=== PATIENT | male | born 1955 | race American Indian/Alaskan Native ===

== ENCOUNTER 2017-10-17 11:30 | Emergency (ER) | payer OTHER, MEDICAID ==
[2017-10-17 11:37] VITALS: BMI 31.7
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
[2017-10-17 12:03] VITALS: TEMP 94.4; O2SAT 99
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
[2017-10-17 12:53] VITALS: BP 178/94; PULSE 76; RESP 16
== END 2017-10-17 13:39 | disposition home or self-care (01) ==
LOC: ED 11:30
DX: R51 Headache (principal); V49.49XA Driver injured in collision with other motor vehicles in traffic accident, initial encounter; Y92.410 Unspecified street and highway as the place of occurrence of the external cause

== ENCOUNTER 2018-07-20 20:54 | Inpatient (IN) | payer MEDICAID, OTHER ==
[2018-07-20 21:06] VITALS: BMI 35.5
--- NOTE | 2018-07-20 21:31 | ED PDOC ---
Arrival/HPI - General Chief Complaint: Back Pain Time Seen by Provider: 07/20/18 21:23 Historian: Patient, Spouse - History of Present Illness Narrative History of Present Illness (Text): 07/20/18 21:23 62 year old male, whose past medical history includes hypertension and diabetes, presents to the emergency department complaining of worsening left lower back pain with movement for the past 2 days. Patient denies any trauma. Patient reports on root to the ER, his blood pressure was elevated and became diaphoretic with difficulty breathing which has currently resolved. Patient denies any fever, chills, chest pain, nausea, vomiting, diarrhea, urinary symptoms, neck pain, headache, dizziness, or any other complaints. PMD: Dr. Maurisio Coronel Symptom Onset: Gradual Symptom Course: Unchanged Activities at Onset: Light Context: Home Past Medical History - Provider Review Nursing Documentation Reviewed: Yes - Cardiac Hx Cardiac Disorders: Yes Hx Hypertension: Yes - Endocrine/Metabolic Hx Endocrine Disorders: Yes Hx Diabetes Mellitus Type 2: Yes - Psychiatric Hx Substance Use: No Family/Social History - Physician Review Nursing Documentation Reviewed: Yes Family/Social History: No Known Family HX Smoking Status: Never Smoked Hx Alcohol Use: No Hx Substance Use: No Allergies/Home Meds Allergies/Adverse Reactions: Allergies No Known Allergies Allergy (Verified 07/20/18 21:06) Home Medications: Home Meds Medication Instructions Recorded Confirmed Benzonatate 200 mg PO DAILY 10/17/17 07/20/18 metFORMIN [glucOPHAGE] 500 mg PO DAILY 10/17/17 07/20/18 Review of Systems - Physician Review All systems were reviewed & negative as marked: Yes - Review of Systems Constitutional: absent: Fevers, Other (Chills) Respiratory: SOB Cardiovascular: absent: Chest Pain Gastrointestinal: absent: Abdominal Pain, Diarrhea, Nausea, Vomiting Genitourinary Male: absent: Dysuria, Frequency, Hematuria Musculoskeletal: Back Pain. absent: Neck Pain Neurological: absent: Headache, Dizziness Endocrine: Diaphoresis Physical Exam - Physical Exam Narrative Physical Exam (Text): Gen: VS reviewed, alert, well developed, well nourished, nontoxic, mild distress. ENT: normal pharynx. Eye: EOMI, PERRL. Neck: no JVD, supple, no adenopathy. CV: regular rate, regular rhythm, no rubs, no murmur, no gallops, S1, S2, pulses equal and strong. Pulm: no distress, clear to auscultation, no wheeze, no rhonchi, breath sounds equal, no rales. Abd: soft, nontender, no guarding, no rebound, no rigidity, normal bowel sounds. Ext: no edema. Skin: good color, no rash, no cyanosis. Psych: responds appropriately to questions, normal affect. Neuro: oriented x 3, CN2-12 intact grossly, motor intact, sensation intact. Vital Signs Reviewed: Yes Vital Signs Temp Pulse Resp BP Pulse Ox 07/20/18 21:09 98.4 F 83 16 196/102 H 99 Temperature: Afebrile Blood Pressure: Hypertensive Pulse: Regular Respiratory Rate: Normal Medical Decision Making ED Course and Treatment: 07/20/18 21:23 Impression: 62 year old male presents complaining of worsening left lower back pain with movement for the past 2 days. Patient also reports elevated blood pressure and diaphoresis with shortness of breath on root to the Emergency room which have resolved. Plan: -- EKG -- Chest X-ray -- Labs -- Apresoline, Catapress -- Reassess and disposition Progress Notes: 07/20/18 21:54 2123: case discussed with dr. almeida, interventional cardiology injury prevention coordinator, he has reviewed the ekg and states it is not consistent with acute stemi 07/21/18 01:45 case discussed with director of medical services and Dr. Frank Alcantar who is aware and agrees with the plan. Accepts patient into hospitalist service. 07/21/18 01:47 patient was seen for transient diaphoresis and dyspnea occurring just prior to Ed arrival. no symptoms during Ed course. CXr and labs appears consistent with CHF, likely stemming from uncontrolled HTN. Patient to be admitted for further workup and cardiology consultation. - Lab Interpretations I have reviewed the lab results: Yes - RAD Interpretation Narrative RAD Interpretations (Text): 07/21/18 01:43 cxr my read: cardiomegaly, pulm edema, no ptx Glazier Helper: ED Physician - EKG Interpretation EKG Interpretation (Text): 07/20/18 22:56 2111: nsr at 85 bpm, nml qrs, LVH with strain, prolonged QT Interpreted by ED Physician: Yes Type: 12 lead EKG - Scribe Statement The provider has reviewed the documentation as recorded by the Scribe Kecia Valenzuelaour Provider Adaliibe Attestation: All medical record entries made by the Neno were at my direction and personally dictated by me. I have reviewed the chart and agree that the record accurately reflects my personal performance of the history, physical exam, medical decision making, and the department course for this patient. I have also personally directed, reviewed, and agree with the discharge instructions and disposition. Disposition/Present on Arrival - Present on Arrival Any Indicators Present on Arrival: No History of DVT/PE: No History of Uncontrolled Diabetes: No Urinary Catheter: No History of Decub. Ulcer: No History Surgical Site Infection Following: None - Disposition Have Diagnosis and Disposition been Completed?: Yes Diagnosis: CHF (congestive heart failure) Disposition: HOSPITALIZED Disposition Time: 01:46 Patient Plan: Admission Condition: STABLE Discharge Instructions (ExitCare): Heart Failure (ED) Forms: [employer] (Malay)
[2018-07-20 22:25] LABS: BASO # 0.01 K/mm3 (0.0-2.0); BASO % 0.1 % (0.0-3.0); EOS # 0.1 (0.0-0.7); EOS % 0.8 % (1.5-5.0); GRAN # 6.51 (1.4-6.5); GRAN % 66.3 % (50.0-68.0); HEMOGLOBIN 15.5 g/dL (14.0-18.0); LYMPH # 2.6 (1.2-3.4); LYMPH % 26.4 % (22.0-35.0); MEAN CELL VOLUME 84.5 fl (80.0-105.0); MEAN CORPUSCULAR HEMOGLOBIN 29.7 pg (25.0-35.0); MEAN CORPUSCULAR HGB CONC 35.1 g/dl (31.0-37.0); MEAN PLATELET VOLUME 10.1 fl (7.0-11.0); MONO # 0.6 (0.1-0.6); MONO % 6.4 % (1.0-6.0); RBC 5.22 10^6/uL (3.5-6.1); RED CELL DISTRIBUTION WIDTH 13.4 % (11.5-14.5); WHITE BLOOD COUNT 9.8 10^3/ul (4.5-11.0)
[2018-07-20 22:31] LABS: ALB/GLOB RATIO 1.1 (1.1-1.8); BLOOD UREA NITROGEN 14 mg/dL (7-21); CALCIUM 8.8 mg/dL (8.4-10.5); GFR NON-AFRICAN AMERICAN > 60
[2018-07-20 22:32] LABS: INR 1.03; PARTIAL THROMBOPLASTIN TIME 28.4 Seconds (25.1-36.5); PROTHROMBIN TIME 11.7 SECONDS (9.4-12.5)
[2018-07-20 22:33] LABS: D DIMER < 200 ng/mlDDU (0-243)
[2018-07-20 22:36] LABS: ALT/SGPT 55 U/L (7-56); AST/SGOT 40 U/L (17-59)
[2018-07-20 22:41] LABS: TROPONIN I 0.04 ng/mL
[2018-07-21] MEDS ORDERED: Insulin Lispro (humaLOG) MEDIUM Coverage SC SCH (03:30)
[2018-07-21 04:46] LABS: HEMOGLOBIN 16.3 g/dL (14.0-18.0); MEAN CELL VOLUME 83.7 fl (80.0-105.0); MEAN CORPUSCULAR HEMOGLOBIN 29.8 pg (25.0-35.0); MEAN CORPUSCULAR HGB CONC 35.6 g/dl (31.0-37.0); MEAN PLATELET VOLUME 10.2 fl (7.0-11.0); RBC 5.47 10^6/uL (3.5-6.1); RED CELL DISTRIBUTION WIDTH 13.4 % (11.5-14.5); WHITE BLOOD COUNT 11.2 10^3/ul (4.5-11.0)
[2018-07-21 04:49] LABS: URINE BILIRUBIN NEGATIVE (NEGATIVE); URINE BLOOD NEGATIVE (NEGATIVE); URINE GLUCOSE (UA) 100 mg/dL (NEGATIVE); URINE LEUKOCYTE ESTERASE NEGATIVE Leu/uL (NEGATIVE); URINE PROTEIN NEGATIVE mg/dL (<30 mg/dL); URINE UROBILINOGEN 0.2 E.U./dL (<1 E.U./dL)
[2018-07-21 04:55] LABS: URINE APPEARANCE CLEAR (CLEAR); URINE COLOR STRAW (YELLOW)
[2018-07-21 05:00] LABS: LDL CHOLESTEROL 76 mg/dL (0-129); TROPONIN I 0.05 ng/mL
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
[2018-07-21 05:24] LABS: ALB/GLOB RATIO 1.1 (1.1-1.8); ALBUMIN 4.3 g/dL (3.0-4.8); ALT/SGPT 55 U/L (7-56); AST/SGOT 30 U/L (17-59); BLOOD UREA NITROGEN 13 mg/dL (7-21); CALCIUM 9.3 mg/dL (8.4-10.5); GFR NON-AFRICAN AMERICAN > 60; HDL CHOLESTEROL 45 mg/dL (29-60)
[2018-07-21 05:54] VITALS: O2SAT 99
[2018-07-21] MEDS: Insulin Lispro (humaLOG) MEDIUM Coverage SC SCH ×5 (08:09→22:11)
--- NOTE | 2018-07-21 09:07 | RAD ---
Date of service: 07/21/2018 HISTORY: CHF COMPARISON: 07/20/2018 TECHNIQUE: Chest PA and lateral FINDINGS: LUNGS: There is a patchy infiltrate in the right lower lobe. This is unchanged PLEURA: No significant pleural effusion identified. No pneumothorax apparent. CARDIOVASCULAR: Normal. OSSEOUS STRUCTURES: No significant abnormalities. VISUALIZED UPPER ABDOMEN: Normal. OTHER FINDINGS: None. IMPRESSION: Patchy infiltrate in the right lower lobe unchanged
--- NOTE | 2018-07-21 09:16 | RAD ---
Date of service: 07/20/2018 HISTORY: dyspnea COMPARISON: No prior. FINDINGS: LUNGS: No active pulmonary disease. PLEURA: No significant pleural effusion identified, no pneumothorax apparent. CARDIOVASCULAR: Mild cardiomegaly and mild vascular congestion OSSEOUS STRUCTURES: No significant abnormalities. VISUALIZED UPPER ABDOMEN: Normal. OTHER FINDINGS: None. IMPRESSION: Mild cardiomegaly and mild vascular congestion
--- NOTE | 2018-07-21 09:43 | CARD ---
APPROVED REPORT Date of service: 07/20/2018 EKG Measurement Heart [id number] <Conclusion> Normal sinus rhythm Biatrial enlargement Left ventricular hypertrophy with repolarization abnormality Prolonged QT
--- NOTE | 2018-07-21 10:35 | CT ---
Date of service: 07/21/2018 PROCEDURE: CT Lumbar Spine without contrast HISTORY: eval for stenosis or djd COMPARISON: None available. TECHNIQUE: Axial computed tomography images were obtained of the lumbar spine without the use of intravenous contrast. Coronal and sagittal reformatted images were created and reviewed. Radiation dose: Total exam DLP = 856 mGy-cm. This CT exam was performed using one or more of the following dose reduction techniques: Automated exposure control, adjustment of the mA and/or kV according to patient size, and/or use of iterative reconstruction technique. FINDINGS: VERTEBRAE: Unremarkable. No fracture. Normal alignment. DISCS/SPINAL CANAL/NEURAL FORAMINA: L1-2: Unremarkable. L2-3: Unremarkable. L3-4: Disc bulge and facet arthropathy with mild central stenosis and mild bilateral foraminal stenosis L4-5: There is fusion of the L4-5 vertebral bodies with absence of a disc space. This is probably a congenital fusion. L5-S1: There is a moderate to large symmetrical disc bulge and facet arthropathy with severe foraminal stenosis. PARASPINAL SOFT TISSUES: Unremarkable. OTHER FINDINGS: None. 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 Disc bulge and facet arthropathy at L5-S1 with severe bilateral foraminal stenosis. Mild disc bulge and mild stenosis at L3-4
--- NOTE | 2018-07-21 10:59 | CARD ---
APPROVED REPORT Date of service: 07/21/2018 EKG Measurement Heart [id number] <Conclusion> Normal sinus rhythm Left ventricular hypertrophy with repolarization abnormality Prolonged QT Abnormal ECG
[2018-07-21 11:12] LABS: TROPONIN I 0.04 ng/mL
--- NOTE | 2018-07-21 14:50 | CP.PCM.PN ---
<Peg Blakeah - Last Filed: 07/21/18 16:19> Subjective - Date & Time of Evaluation Date of Evaluation: 07/21/18 Time of Evaluation: 07:15 - Subjective Subjective: Internal Medicine Progress note for Dr. Gong Patient seen and examined this am. patient is resting comfortably in chair and is able to ambulate easily without pain. Patient states that the back pain he had has resolved and only occasionally occurs while walking or standing. Discussed with patient the benefits of PT and possible dietary evaluation for better ambulatory strategies and control of his HTN respectively. Patient otherwise deneis WOODY, CP, SOB, abdominal pain, back pain or extremity pain. Objective - Vital Signs/Intake and Output Vital Signs (last 24 hours): Temp Pulse Resp BP Pulse Ox 98.0 F 76 21 147/89 99 07/21/18 12:00 07/21/18 12:32 07/21/18 12:00 07/21/18 12:32 07/21/18 05:52 Intake and Output: 07/21/18 07/21/18 06:59 18:59 Intake Total 500 Output Total 500 Balance 0 - Medications Medications: Current Medications Amlodipine Besylate (Norvasc) 5 mg PO DAILY [facility] Last Admin: 07/21/18 12:32 Dose: 5 mg Cyclobenzaprine HCl (Flexeril) 10 mg PO BID [facility] Last Admin: 07/21/18 10:06 Dose: 10 mg Famotidine (Pepcid) 20 mg PO DAILY [facility] Last Admin: 07/21/18 10:06 Dose: 20 mg Furosemide (Lasix) 20 mg IVP DAILY [facility] Last Admin: 07/21/18 10:06 Dose: 20 mg Heparin Sodium (Porcine) (Heparin) 5,000 units SC Q12 [facility]; Protocol Last Admin: 07/21/18 10:06 Dose: 5,000 units Hydralazine HCl (Apresoline) 10 mg IVP Q6 PRN PRN Reason: Systolic Blood Pressure > 150 Insulin Human Lispro (Humalog Med) 0 units SC ACHS [facility]; Protocol Last Admin: 07/21/18 11:58 Dose: Not Given Lisinopril (Zestril) 20 mg PO DAILY [facility] Last Admin: 07/21/18 12:31 Dose: 20 mg - Labs Labs: 07/21/18 04:18 07/21/18 04:18 PT 11.7 SECONDS (9.4-12.5) 07/20/18 22:08 INR 1.03 07/20/18 22:08 APTT 28.4 Seconds (25.1-36.5) 07/20/18 22:08 - Constitutional Appears: Well, Non-toxic, No Acute Distress - Head Exam Head Exam: ATRAUMATIC, NORMOCEPHALIC - Eye Exam Eye Exam: EOMI - ENT Exam ENT Exam: Mucous Membranes Moist - Neck Exam Neck Exam: Full ROM - Respiratory Exam Respiratory Exam: NORMAL BREATHING PATTERN - Cardiovascular Exam Cardiovascular Exam: REGULAR RHYTHM - GI/Abdominal Exam GI & Abdominal Exam: Soft. absent: Distended, Guarding, Tenderness - Extremities Exam Extremities Exam: absent: Calf Tenderness, Pedal Edema - Back Exam Back Exam: absent: paraspinal tenderness, vertebral tenderness - Neurological Exam Neurological Exam: Alert, Awake, CN II-XII Intact, Normal Gait, Oriented x3. absent: Motor Sensory Deficit - Psychiatric Exam Psychiatric exam: Normal Affect, Normal Mood - Skin Skin Exam: Dry, Intact, Normal Color, Warm Assessment and Plan - Assessment and Plan (Free Text) Assessment: 63 y/o M with PMHx DM, HTN admitted for hypertensive emergency and CHF exacerbation. In the ED, pt was treated with clonidine, lasix, and 2 doses of hydralazine. Overnight BP fairly well controlled, will begin lisoprila dn metoprolol toay for scheduled BP control. Discussed with patient need for low sodium diet and PT Eval to ensure he is able to ambulate safely. Plan: HTN * trops negative * EKG shows LVH and evidence of longstanding HTN * begin lisinopril and amlodipine * continue to monitor BP CHF * lasix 20mg IVP daily * F/u Echocardiogram * Consult cardiology: appreciate recs DM2 * Start insulin SS * f/u HgB A1c * Dietary eval, recs appreciated Low Back Pain * c/w cyclobenzaprine * f/u CT lumbar spine * PT eval and treat DVT/GI ppx: Heparin/Pepcid <Rangasamy,Ajantha - Last Filed: 07/22/18 16:49> Objective - Vital Signs/Intake and Output Vital Signs (last 24 hours): Temp Pulse Resp BP Pulse Ox 99.0 F 79 20 159/92 H 99 07/22/18 06:00 07/22/18 06:00 07/21/18 18:00 07/22/18 06:00 07/21/18 05:52 Intake and Output: 07/22/18 07/22/18 06:59 18:59 Intake Total 300 Balance 300 - Medications Medications: Current Medications Acetaminophen (Tylenol 325mg Tab) 650 mg PO Q6H PRN PRN Reason: Fever >100.4 F Last Admin: 07/21/18 18:46 Dose: 650 mg Amlodipine Besylate (Norvasc) 10 mg PO DAILY [facility] Cyclobenzaprine HCl (Flexeril) 10 mg PO BID [facility] Last Admin: 07/21/18 17:24 Dose: 10 mg Famotidine (Pepcid) 20 mg PO DAILY [facility] Last Admin: 07/21/18 10:06 Dose: 20 mg Furosemide (Lasix) 40 mg PO DAILY [facility] Heparin Sodium (Porcine) (Heparin) 5,000 units SC Q12 [facility]; Protocol Last Admin: 07/21/18 22:10 Dose: 5,000 units Hydralazine HCl (Apresoline) 10 mg IVP Q6 PRN PRN Reason: Systolic Blood Pressure > 150 Ceftriaxone Sodium (Rocephin 1 Gram Ivpb) 1 gm in 100 mls @ 100 mls/hr IVPB DAILY [facility]; Protocol Insulin Human Lispro (Humalog Med) 0 units SC ACHS [facility]; Protocol Last Admin: 07/21/18 22:11 Dose: Not Given Lisinopril (Zestril) 20 mg PO DAILY [facility] Last Admin: 07/21/18 12:31 Dose: 20 mg - Labs Labs: 07/22/18 05:30 07/22/18 05:30 PT 11.7 SECONDS (9.4-12.5) 07/20/18 22:08 INR 1.03 07/20/18 22:08 APTT 28.4 Seconds (25.1-36.5) 07/20/18 22:08 Attending/Attestation - Attestation I have personally seen and examined this patient.: Yes I have fully participated in the care of the patient.: Yes I have reviewed all pertinent clinical information, including history, physical exam and plan: Yes Notes (Text): 07/22/18 07:59 Attending note; Patient seen and examined with resident. Patient is alert and awake. Back pain resolved. Ambulating in the hallway. Blood pressure is improving. Denies any headache, chest pain, shortness of breath. Denies any nausea, vomiting. Tolerating diet well. Patient is a 63-year-old male with a past medical history of hypertension, noncompliance with medication is admitted with back pain. Found to have uncontrolled hypertension. Started back on medication. Blood pressures improved. Continue Norvasc, Lasix and lisinopril. Dietary education given. Cardiology evaluation requested. Echocardiogram ordered. Back pain resolved; lumbosacral CT ordered. PT evaluation requested. needs close follow up with PMD Dr. Coronel.
[2018-07-21] MEDS ORDERED: cefTRIAXone 1 gm 1 GM/100 ML BAG IVPB SCH (18:27)
[2018-07-21] MEDS ORDERED: cefTRIAXone 1 gm 1 GM/100 ML BAG IVPB ONE (18:51)
--- NOTE | 2018-07-21 20:54 | CARD ---
APPROVED REPORT Date of service: 07/21/2018 EXAM: Two-dimensional and M-mode echocardiogram with Doppler and color Doppler. INDICATION EVALUATE LVFX 2D DIMENSIONS Left Atrium (2D)4.5 (1.6-4.0cm)IVSd1.5 (0.7-1.1cm) LVDd4.6 (3.9-5.9cm)PWd1.6 (0.7-1.1cm) LVDs2.8 (2.5-4.0cm)FS (%) 38.9 % LVEF (%)69.4 (>50%) M-Mode DIMENSIONS Aortic Root2.50 (2.2-3.7cm)Aortic Cusp Exc.1.60 (1.5-2.0cm) Aortic Valve AoV Peak Eslrkqjc724.0cm/sAoV VTI32.6cmAO Peak GR.18mmHg LVOT Peak Xjzwxkjn112.0cm/sLVOT VTI19.90cmAO Mean GR.10mmHg Mitral Valve MV E Ojfrnvch329.0cm/sMV A Ssxzgrhh43.6cm/sE/A ratio1.6 TDI Lateral E' Peak V3.61cm/sMedial E' Peak V4.87cm/sE/Lateral E'29.6 E/Medial E'22.0 Pulmonary Valve PV Peak Ebyyqksp976.0cm/sPV Peak Grad.5mmHg Tricuspid Valve TR Peak Iynlifjy853lx/sRAP EVAUIZMF49mlXpCR Peak Gr.17mmHg [id number] LEFT VENTRICLE The left ventricle is normal size. There is moderate concentric left ventricular hypertrophy. Speckled pattern The left ventricular function is normal. The left ventricular ejection fraction is within the normal range. There is normal LV segmental wall motion. Tissue Doppler imaging reveals mild left ventricular diastolic dysfunction. RIGHT VENTRICLE The right ventricle is normal size. There is normal right ventricular wall thickness. The right ventricular systolic function is normal. ATRIA The left atrium is mildly dilated. The right atrium size is normal. AORTIC VALVE The aortic valve is mildly thickened. No aortic regurgitation is present. There is no aortic valvular stenosis. MITRAL VALVE The mitral valve is normal in structure. Mitral regurgitation is trace. TRICUSPID VALVE The tricuspid valve is normal in structure. There is trace tricuspid regurgitation. PULMONIC VALVE The pulmonary valve is normal in structure. There is no pulmonic valvular regurgitation. GREAT VESSELS The aortic root is normal in size. The IVC is normal in size and collapses >50% with inspiration. PERICARDIAL EFFUSION There is a trace circumferential pericardial effusion. <Conclusion> There is moderate concentric left ventricular hypertrophy. Speckled pattern The left ventricular function is normal. The left ventricular ejection fraction is within the normal range. There is normal LV segmental wall motion. Tissue Doppler imaging reveals mild left ventricular diastolic dysfunction.
--- NOTE | 2018-07-22 05:14 | CON ---
DATE: 07/21/2018 REASON FOR CONSULTATION: Hypertension, diabetes mellitus, and low back pain. HISTORY OF PRESENT ILLNESS: The patient is a 63-year-old male originally from ____ has history of hypertension, diabetes mellitus, presented because of worsening of low back pain for the past 2 days prior to admission. Patient denies any fall or accident. The patient was noted to have uncontrolled hypertension and shortness of breath as well as diaphoresis, was reported in the emergency room. Patient denies any prior known cardiac history other than history of hypertension. MEDICATIONS: Patient's home medications are metformin, amlodipine, benazepril HCl. Current hospital medications are hydralazine 10 mg intravenously every 6 hours p.r.n., heparin 5000 units subcutaneously every 12 hours, Lasix 20 mg intravenously daily, Norvasc 5 mg once a day, Zestril 20 mg once a day, Pepcid 20 mg orally once a day. PHYSICAL EXAMINATION: GENERAL: Patient is a middle-aged male, who does not appear to be in acute distress. VITAL SIGNS: Blood pressure, the highest blood pressure today was 161/104, heart rate 78, temperature 98, respiration 21. HEENT: Normocephalic. CHEST: Clear. HEART: S1, S2 regular. ABDOMEN: Soft. EXTREMITIES: No edema. LABORATORY DATA: Hemoglobin and hematocrit 16.3 and 45.8, white count 11.2, platelet count 140,000. Today's SMA-7 is within normal limits except for glucose 139. Troponin were 0.04, 0.05, and 0.04. EKG reveals sinus rhythm, LVH with repolarization changes, biatrial enlargement. Lumbar spine CT scan, congenital fusion of L4, L5 vertebral bodies, disk bulge and facet arthropathy at L5-S1 with severe bilateral foraminal stenosis. ASSESSMENT: 1. Uncontrolled hypertension. 2. Low back pain. 3. Diabetes mellitus. 4. Abnormal EKG with evidence of biatrial enlargement, left ventricular hypertrophy with repolarization changes, and on admission there was prolonged QT interval. RECOMMENDATIONS: Continue hydralazine 10 mg every 6 hours p.r.n., subcutaneous heparin 5000 units twice a day, Lasix 20 mg intravenously daily, Norvasc 5 mg once a day, Zestril 20 mg once a day. I will review the echocardiographic study performed today. Avtar Guillermo MD [facility] # [id number]
[2018-07-22 06:30] LABS: HEMOGLOBIN 15.6 g/dL (14.0-18.0); MEAN CELL VOLUME 84.7 fl (80.0-105.0); MEAN CORPUSCULAR HEMOGLOBIN 29.2 pg (25.0-35.0); MEAN CORPUSCULAR HGB CONC 34.4 g/dl (31.0-37.0); RBC 5.35 10^6/uL (3.5-6.1); RED CELL DISTRIBUTION WIDTH 13.8 % (11.5-14.5)
[2018-07-22 07:22] LABS: ALB/GLOB RATIO 1.1 (1.1-1.8); ALBUMIN 3.8 g/dL (3.0-4.8); ALT/SGPT 39 U/L (7-56); AST/SGOT 22 U/L (17-59); BLOOD UREA NITROGEN 14 mg/dL (7-21); CALCIUM 8.8 mg/dL (8.4-10.5); GFR NON-AFRICAN AMERICAN 56
[2018-07-22] MEDS: Insulin Lispro (humaLOG) MEDIUM Coverage SC SCH ×3 (08:09→17:28)
[2018-07-22] MEDS ORDERED: cefTRIAXone 1 gm 1 GM/100 ML BAG IVPB SCH (10:00)
--- NOTE | 2018-07-22 13:36 | CP.PCM.DIS ---
<HaydenFarrah - Last Filed: 07/23/18 17:05> Provider - Provider Date of Admission: 07/21/18 01:48 Attending physician: Cristine Gong MD Time Spent in preparation of Discharge (in minutes): 45 Diagnosis - Discharge Diagnosis (1) HTN (hypertension) Status: Resolved (2) CHF (congestive heart failure) Status: Resolved Hospital Course - Lab Results Lab Results: Micro Results 07/21/18 03:15 Urine Urine Culture - Final No Growth (<1,000 CFU/ML) Most Recent Lab Values WBC 12.0 10^3/ul (4.5-11.0) H 07/22/18 05:30 RBC 5.35 10^6/uL (3.5-6.1) 07/22/18 05:30 Hgb 15.6 g/dL (14.0-18.0) 07/22/18 05:30 Hct 45.3 % (42.0-52.0) 07/22/18 05:30 MCV 84.7 fl (80.0-105.0) 07/22/18 05:30 MCH 29.2 pg (25.0-35.0) 07/22/18 05:30 MCHC 34.4 g/dl (31.0-37.0) 07/22/18 05:30 RDW 13.8 % (11.5-14.5) 07/22/18 05:30 Plt Count 200 10^3/uL (120.0-450.0) 07/22/18 05:30 MPV 10.0 fl (7.0-11.0) 07/22/18 05:30 Gran % 66.3 % (50.0-68.0) 07/20/18 22:08 Lymph % (Auto) 26.4 % (22.0-35.0) 07/20/18 22:08 [place] % (Auto) 6.4 % (1.0-6.0) H 07/20/18 22:08 Eos % (Auto) 0.8 % (1.5-5.0) L 07/20/18 22:08 Baso % (Auto) 0.1 % (0.0-3.0) 07/20/18 22:08 Gran # 6.51 (1.4-6.5) H 07/20/18 22:08 Lymph # (Auto) 2.6 (1.2-3.4) 07/20/18 22:08 [place] # (Auto) 0.6 (0.1-0.6) 07/20/18 22:08 Eos # (Auto) 0.1 (0.0-0.7) 07/20/18 22:08 Baso # (Auto) 0.01 K/mm3 (0.0-2.0) 07/20/18 22:08 PT 11.7 SECONDS (9.4-12.5) 07/20/18 22:08 INR 1.03 07/20/18 22:08 APTT 28.4 Seconds (25.1-36.5) 07/20/18 22:08 D-Dimer, Quantitative < 200 ng/mlDDU (0-243) 07/20/18 22:08 Sodium 138 mmol/L (132-148) 07/22/18 05:30 Potassium 4.2 mmol/L (3.6-5.0) 07/22/18 05:30 Chloride 101 mmol/L (98-107) 07/22/18 05:30 Carbon Dioxide 30 mmol/L (21-33) 07/22/18 05:30 Anion Gap 11 (10-20) 07/22/18 05:30 BUN 14 mg/dL (7-21) 07/22/18 05:30 Creatinine 1.3 mg/dl (0.8-1.5) 07/22/18 05:30 Est GFR ( Amer) > 60 07/22/18 05:30 Est GFR (Non-Af Amer) 56 07/22/18 05:30 POC Glucose (mg/dL) 140 mg/dL (65-110) H 07/22/18 11:36 Random Glucose 147 mg/dL (70-110) H 07/22/18 05:30 Hemoglobin A1c 7.3 % (4.2-6.5) H 07/21/18 04:15 Calcium 8.8 mg/dL (8.4-10.5) 07/22/18 05:30 Phosphorus 4.1 mg/dL (2.5-4.5) 07/22/18 05:30 Magnesium 2.2 mg/dL (1.7-2.2) 07/22/18 05:30 Total Bilirubin 0.9 mg/dL (0.2-1.3) 07/22/18 05:30 AST 22 U/L (17-59) 07/22/18 05:30 ALT 39 U/L (7-56) 07/22/18 05:30 Alkaline Phosphatase 64 U/L (38-126) 07/22/18 05:30 Lactate Dehydrogenase 620 U/L (333-699) 07/21/18 10:30 Total Creatine Kinase 140 U/L (35-230) 07/21/18 10:30 Troponin I 0.04 ng/mL 07/21/18 10:30 NT-Pro-B Natriuret Pep 1520 pg/mL (0-450) H 07/20/18 22:08 Total Protein 7.4 g/dL (5.8-8.3) 07/22/18 05:30 Albumin 3.8 g/dL (3.0-4.8) 07/22/18 05:30 Globulin 3.6 gm/dL 07/22/18 05:30 Albumin/Globulin Ratio 1.1 (1.1-1.8) 07/22/18 05:30 Triglycerides 123 mg/dL (35-160) 07/21/18 04:18 Cholesterol 144 mg/dL (130-200) 07/21/18 04:18 LDL Cholesterol Direct 76 mg/dL (0-129) 07/21/18 04:18 HDL Cholesterol 45 mg/dL (29-60) 07/21/18 04:18 TSH 3rd Generation 1.72 mIU/mL (0.46-4.68) 07/20/18 22:05 Urine Color Straw (YELLOW) 07/21/18 03:15 Urine Appearance Clear (CLEAR) 07/21/18 03:15 Urine pH 7.0 (4.7-8.0) 07/21/18 03:15 Ur Specific [place] 1.010 (1.005-1.035) 07/21/18 03:15 Urine Protein Negative mg/dL (<30 mg/dL) 07/21/18 03:15 Urine Glucose (UA) 100 mg/dL (NEGATIVE) H 07/21/18 03:15 Urine Ketones Negative mg/dL (NEGATIVE) 07/21/18 03:15 Urine Blood Negative (NEGATIVE) 07/21/18 03:15 Urine Nitrate Negative (NEGATIVE) 07/21/18 03:15 Urine Bilirubin Negative (NEGATIVE) 07/21/18 03:15 Urine Urobilinogen 0.2 E.U./dL (<1 E.U./dL) 07/21/18 03:15 Ur Leukocyte Esterase Negative Brenda/uL (NEGATIVE) 07/21/18 03:15 - Hospital Course Hospital Course: Patient was seen in ED and diagnosed with hypertensive emergency, CHF exacerbation and low back pain. While heading to the ED, patient reported feeling diaphoretic and had difficulty breathing which resolved spontaneously. On admission his blood pressure was 196/106 which was treated with clonidine, lasix and 2 doses of hydralazine which decreased blood pressure to 130s/80s. An EKG showed left ventricular hypertrophy and chest x-ray indicated mild cardiomegaly and mild vascular congestion. Cardiology was consulted. An ECHO revealed moderate concentric left ventricular hypertrophy with mild systolic dysfunction with normal left ventricular function, ejection fraction (69.4%) and wall motion. The patient most likely had non-compliant hypertension which resulted in his hypertensive emergency and CHF exacerbation. The patient was started on lisinopril and amlodipine. Lasix was continued as well whereas hydralazine was only taken as needed. His blood pressure remained in the 150s/90s thereafter. 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 The patient was started on Flexeril and, if needed, Tylenol for pain. He reported improvement with this treatment and was encouraged to follow up with his primary care doctor to discuss stretches and exercises to prevent future flares. On discharge, patient was breathing room air and ambulating without assistance. Discharge Exam - Head Exam Head Exam: NORMAL INSPECTION, NORMOCEPHALIC - Eye Exam Eye Exam: EOMI - ENT Exam ENT Exam: Mucous Membranes Moist - Respiratory Exam Respiratory Exam: NORMAL BREATHING PATTERN - Cardiovascular Exam Cardiovascular Exam: REGULAR RHYTHM - GI/Abdominal Exam GI & Abdominal Exam: Soft. absent: Distended, Guarding, Rigid, Tenderness - Extremities Exam Extremities exam: normal inspection, pedal pulses present - Back Exam Back exam: NORMAL INSPECTION - Neurological Exam Neurological exam: Alert, CN II-XII Intact, Normal Gait, Oriented x3 - Psychiatric Exam Psychiatric exam: Normal Affect, Normal Mood - Skin Skin Exam: Dry, Intact, Normal Color, Warm Discharge Plan - Discharge Medications Prescriptions: amLODIPine [Norvasc] 10 mg PO DAILY #30 tab Amoxicillin/Clavulanate [Augmentin 875 MG-125 MG] 1 tab PO Q8H 5 Days #15 tab Furosemide [Lasix] 40 mg PO DAILY #30 tab Lisinopril [Zestril] 20 mg PO DAILY #30 tab metFORMIN [glucOPHAGE] 500 mg PO DAILY #60 tab - Follow Up Plan Condition: STABLE Disposition: HOME/ ROUTINE Instructions: Heart Healthy Diet, Heart Failure, Adult (DC), Heart Failure (DC), Heart Failure (GEN), Pacemaker (DC), Pacemaker (GEN), Pulmonary Edema (DC), Pulmonary Edema (GEN), Ascites (DC), Ascites (GEN), Hypertension (DC), Hypertension (GEN) Additional Instructions: Upon discharge please take the following medications as prescribed: -Augmentin 875-125mg by mouth three times/day for 5 days Disp#15 -Amlodipine 10mg by mouth daily Disp#30 -Lisinopril 20mg by mouth daily Disp#30 -Lasix 40mg po by mouth daily Disp#30 -Metformin 500mg by mouth twice daily Disp#60 Please follow up with your primary care doctor, Dr. Coronel within 3-5 days of leaving the hospital. You will need to discuss stretching exercises and strategies to prevent positional back pain with your Primary Care Doctor. If symptoms return please go to your nearest Emergency Room immediately. <Cristine Gong - Last Filed: 07/23/18 18:00> Provider - Provider Date of Admission: 07/21/18 01:48 Attending physician: Cristine Gong MD Hospital Course - Lab Results Lab Results: Micro Results 07/21/18 03:15 Urine Urine Culture - Final No Growth (<1,000 CFU/ML) Most Recent Lab Values WBC 12.0 10^3/ul (4.5-11.0) H 07/22/18 05:30 RBC 5.35 10^6/uL (3.5-6.1) 07/22/18 05:30 Hgb 15.6 g/dL (14.0-18.0) 07/22/18 05:30 Hct 45.3 % (42.0-52.0) 07/22/18 05:30 MCV 84.7 fl (80.0-105.0) 07/22/18 05:30 MCH 29.2 pg (25.0-35.0) 07/22/18 05:30 MCHC 34.4 g/dl (31.0-37.0) 07/22/18 05:30 RDW 13.8 % (11.5-14.5) 07/22/18 05:30 Plt Count 200 10^3/uL (120.0-450.0) 07/22/18 05:30 MPV 10.0 fl (7.0-11.0) 07/22/18 05:30 Gran % 66.3 % (50.0-68.0) 07/20/18 22:08 Lymph % (Auto) 26.4 % (22.0-35.0) 07/20/18 22:08 [place] % (Auto) 6.4 % (1.0-6.0) H 07/20/18 22:08 Eos % (Auto) 0.8 % (1.5-5.0) L 07/20/18 22:08 Baso % (Auto) 0.1 % (0.0-3.0) 07/20/18 22:08 Gran # 6.51 (1.4-6.5) H 07/20/18 22:08 Lymph # (Auto) 2.6 (1.2-3.4) 07/20/18 22:08 [place] # (Auto) 0.6 (0.1-0.6) 07/20/18 22:08 Eos # (Auto) 0.1 (0.0-0.7) 07/20/18 22:08 Baso # (Auto) 0.01 K/mm3 (0.0-2.0) 07/20/18 22:08 PT 11.7 SECONDS (9.4-12.5) 07/20/18 22:08 INR 1.03 07/20/18 22:08 APTT 28.4 Seconds (25.1-36.5) 07/20/18 22:08 D-Dimer, Quantitative < 200 ng/mlDDU (0-243) 07/20/18 22:08 Sodium 138 mmol/L (132-148) 07/22/18 05:30 Potassium 4.2 mmol/L (3.6-5.0) 07/22/18 05:30 Chloride 101 mmol/L (98-107) 07/22/18 05:30 Carbon Dioxide 30 mmol/L (21-33) 07/22/18 05:30 Anion Gap 11 (10-20) 07/22/18 05:30 BUN 14 mg/dL (7-21) 07/22/18 05:30 Creatinine 1.3 mg/dl (0.8-1.5) 07/22/18 05:30 Est GFR ( Amer) > 60 07/22/18 05:30 Est GFR (Non-Af Amer) 56 07/22/18 05:30 POC Glucose (mg/dL) 165 mg/dL (65-110) H 07/22/18 15:28 Random Glucose 147 mg/dL (70-110) H 07/22/18 05:30 Hemoglobin A1c 7.3 % (4.2-6.5) H 07/21/18 04:15 Calcium 8.8 mg/dL (8.4-10.5) 07/22/18 05:30 Phosphorus 4.1 mg/dL (2.5-4.5) 07/22/18 05:30 Magnesium 2.2 mg/dL (1.7-2.2) 07/22/18 05:30 Total Bilirubin 0.9 mg/dL (0.2-1.3) 07/22/18 05:30 AST 22 U/L (17-59) 07/22/18 05:30 ALT 39 U/L (7-56) 07/22/18 05:30 Alkaline Phosphatase 64 U/L (38-126) 07/22/18 05:30 Lactate Dehydrogenase 620 U/L (333-699) 07/21/18 10:30 Total Creatine Kinase 140 U/L (35-230) 07/21/18 10:30 Troponin I 0.04 ng/mL 07/21/18 10:30 NT-Pro-B Natriuret Pep 1520 pg/mL (0-450) H 07/20/18 22:08 Total Protein 7.4 g/dL (5.8-8.3) 07/22/18 05:30 Albumin 3.8 g/dL (3.0-4.8) 07/22/18 05:30 Globulin 3.6 gm/dL 07/22/18 05:30 Albumin/Globulin Ratio 1.1 (1.1-1.8) 07/22/18 05:30 Triglycerides 123 mg/dL (35-160) 07/21/18 04:18 Cholesterol 144 mg/dL (130-200) 07/21/18 04:18 LDL Cholesterol Direct 76 mg/dL (0-129) 07/21/18 04:18 HDL Cholesterol 45 mg/dL (29-60) 07/21/18 04:18 TSH 3rd Generation 1.72 mIU/mL (0.46-4.68) 07/20/18 22:05 Urine Color Straw (YELLOW) 07/21/18 03:15 Urine Appearance Clear (CLEAR) 07/21/18 03:15 Urine pH 7.0 (4.7-8.0) 07/21/18 03:15 Ur Specific [place] 1.010 (1.005-1.035) 07/21/18 03:15 Urine Protein Negative mg/dL (<30 mg/dL) 07/21/18 03:15 Urine Glucose (UA) 100 mg/dL (NEGATIVE) H 07/21/18 03:15 Urine Ketones Negative mg/dL (NEGATIVE) 07/21/18 03:15 Urine Blood Negative (NEGATIVE) 07/21/18 03:15 Urine Nitrate Negative (NEGATIVE) 07/21/18 03:15 Urine Bilirubin Negative (NEGATIVE) 07/21/18 03:15 Urine Urobilinogen 0.2 E.U./dL (<1 E.U./dL) 07/21/18 03:15 Ur Leukocyte Esterase Negative Brenda/uL (NEGATIVE) 07/21/18 03:15 Attending/Attestation - Attestation I have personally seen and examined this patient.: Yes I have fully participated in the care of the patient.: Yes I have reviewed all pertinent clinical information, including history, physical exam and plan: Yes Notes (Text): 07/23/18 17:57 Attending note; Patient seen and examined with resident. Patient is alert and awake. Back pain resolved. Ambulating in the hallway. Blood pressure is improving. Denies any headache, chest pain, shortness of breath. Denies any nausea, vomiting. Tolerating diet well. Patient is a 63-year-old male with a past medical history of hypertension, noncompliance with medication is admitted with back pain. Found to have uncontrolled hypertension. Started back on medication. Blood pressures improved. Continue Norvasc, Lasix and lisinopril. Dietary education given. Cardiology evaluation appreciated. Echocardiogram showed moderate left ventricle hypertrophy with normal left ventricular ejection with mild diastolic dysfunction. Back pain resolved; lumbosacral CT showed disc bulge and arthropathy at L5s1. PT evaluation appreciated. Needs close follow-up with PMD for blood pressure control. Dietary education given. Follow up with PMD Dr. Coronel in 3 to 5 days to adjust BP meds.
[2018-07-22 18:01] VITALS: RESP 21; TEMP 98
[2018-07-22] MEDS ORDERED: cefTRIAXone 1 gm 1 GM/100 ML BAG IVPB ONE (18:47)
[2018-07-22 18:48] VITALS: PULSE 88
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
[2018-07-22 19:39] VITALS: BP 154/88
== END 2018-07-22 20:47 | disposition home or self-care (01) | DRG 127 ==
LOC: ED 20:54 → ERH 07-21 01:48 → 2RNO 07-21 03:24
PROVIDERS: ADMIT Hospitalist; ATTEND Internal Medicine
DX: I11.0 Hypertensive heart disease with heart failure (principal); I50.9 Heart failure, unspecified; I16.1 Hypertensive emergency; E11.9 Type 2 diabetes mellitus without complications; M48.061 Spinal stenosis, lumbar region without neurogenic claudication; Q76.49 Other congenital malformations of spine, not associated with scoliosis; R63.1 Polydipsia; Z91.14 Patient's other noncompliance with medication regimen; Z91.19 Patient's noncompliance with other medical treatment and regimen